=== PATIENT | female | born 1985 | race Caucasian/White ===

== ENCOUNTER 2017-02-13 08:14 | Emergency (ER) | payer OTHER ==
[2017-02-13 08:40] VITALS: BP 112/71; PULSE 104; TEMP 98.2; BMI 22.6
--- NOTE | 2017-02-13 09:26 | PDOC ---
History of Present Illness - General Chief Complaint: Cold Symptoms Stated Complaint: cold like symptoms.vaginal complaints Time Seen by Provider: 02/13/17 09:08 History Source: Patient Exam Limitations: No Limitations - History of Present Illness Initial Comments: 02/13/17 09:20 31 yr female with c/o nausea, weakness irregular menses for 2 months. Pt states she has history of anemia. denies fever or chills. Timing/Duration: unsure Severity: mild Associated Symptoms: reports: loss of appetite, nausea/vomiting. denies: cough Past History - Past Medical History Allergies/Adverse Reactions: Allergies Allergy/AdvReac Type Severity Reaction Status Date / Time No Known Allergies Allergy Verified 02/13/17 08:37 Home Medications: Ambulatory Orders NK [No Known Home Medication] 02/13/17 Anemia: Yes COPD: No Disorders: No (IUD) - Suicide/Smoking/Psychosocial Hx Smoking History: Never smoked Have you smoked in the past 12 months: No Information on smoking cessation initiated: No Hx Alcohol Use: No Drug/Substance Use Hx: No Substance Use Type: None Review of Systems - Review of Systems Able to Perform ROS?: Yes Is the patient limited Swedish proficient: No Constitutional: Yes: Symptoms Reported HEENTM: No: Symptoms Reported Respiratory: No: Symptoms reported Cardiac (ROS): No: Symptoms Reported ABD/GI: Yes: Symptoms Reported, Nausea : No: Symptoms Reported Musculoskeletal: No: Symptoms Reported *Physical Exam - Vital Signs Last Vital Signs Temp Pulse Resp BP Pulse Ox 98.2 F 104 H 18 112/71 100 02/13/17 08:37 02/13/17 08:37 02/13/17 08:37 02/13/17 08:37 02/13/17 08:37 - Physical Exam General Appearance: Yes: Nourished, Appropriately Dressed HEENT: positive: EOMI, JAMEL, TMs Normal, Pharynx Normal Neck: positive: Supple. negative: Tender, Lymphadenopathy (R), Lymphadenopathy (L) Respiratory/Chest: positive: Lungs Clear, Normal Breath Sounds. negative: Chest Tender Cardiovascular: positive: Regular Rhythm, Regular Rate Gastrointestinal/Abdominal: positive: Normal Bowel Sounds, Soft. negative: Tender Musculoskeletal: positive: Normal Inspection Medical Decision Making - Medical Decision Making 02/13/17 09:27 cc: weakness, nausea , irregular menses , neg dizzyness, neg chest pain will check neg orthostatics sitting BP 110/70 HR 76 standing HR 80 BP 113/76 non toxic 02/13/17 10:35 negative negative UA will refer to clinic for follow up dc inst given all questions asked and answered 02/13/17 18:38 *DC/Admit/Observation/Transfer Diagnosis at time of Disposition: Weakness - Discharge Dispostion Disposition: HOME Condition at time of disposition: Good - Referrals Referrals: Reji Olmos MD [Staff Physician] - - Patient Instructions Additional Instructions: please follow at the clinic listed below for further workup and evaluation, you had a negative test today and no evidence of a urine infection however you may need further workup as an outpatient drink at least 2 liters of water a day take a multivitamin with iron (any over the counter multivitamin with iron) return to ER for any fever, chills, severe pain or vomiting or any other concerns - Post Discharge Activity
[2017-02-13 10:14] LABS: URINE APPEARANCE SLCLOUDY; URINE BILIRUBIN NEGATIVE (NEGATIVE); URINE BLOOD NEGATIVE (NEGATIVE); URINE COLOR YELLOW; URINE GLUCOSE (UA) NEGATIVE (NEGATIVE); URINE KETONE NEGATIVE (NEGATIVE); URINE LEUK ESTERASE TRACE (NEGATIVE); URINE NITRITE NEGATIVE (NEGATIVE); URINE PROTEIN NEGATIVE (NEGATIVE); URINE UROBILINOGEN NEGATIVE mg/dL (0.2-1.0)
[2017-02-13 11:21] LABS: URINE MUCUS RARE; URINE RBC 5 /hpf (0-3); URINE WBC 7 /hpf (3-5)
[2017-02-13 18:11] LABS: URINE LEUK ESTERASE Negative (NEGATIVE)
== END 2017-02-13 11:00 | disposition home or self-care (01) ==
LOC: JERFT 08:14
DX: R53.1 Weakness (principal)
CPT/HCPCS: 81003; 81015; 84703; 99281-25